=== PATIENT | female | born 1960 | race Caucasian/White ===

== ENCOUNTER 2020-04-16 12:27 | Emergency (ER) | payer MEDICARE ==
[~2020-04-16] VITALS: Ht 160 cm; Wt 94.1 kg
[~2020-04-16 12:27] MED LIST: ALBU6.7H3; AMPH10TA4; ATOR20TA66; ERGO500014; GABA-338; IBUP-1051 PO; QUET400T5; TRAM50TA2; [UNRECOGNIZED DRUG - CODE]
[2020-04-16] MEDS ORDERED: IBUP-1985 PO (13:31)
[2020-04-16 13:50] VITALS: BP 153/57
== END 2020-04-16 13:52 | disposition home or self-care (01) ==
LOC: ER 12:27
DX: S89.92XA Unspecified injury of left lower leg, initial encounter (principal); Z88.5 Allergy status to narcotic agent; Z88.8 Allergy status to other drugs, medicaments and biological substances; Z79.899 Other long term (current) drug therapy; W19.XXXA Unspecified fall, initial encounter; Y93.89 Activity, other specified; Y92.89 Other specified places as the place of occurrence of the external cause; Y99.8 Other external cause status
CPT/HCPCS: 29505; 73564; 99284